=== PATIENT | male | born 1955 ===

== ENCOUNTER 2017-03-10 12:13 | Emergency (ER) | payer OTHER ==
[2017-03-10 12:32] VITALS: BP 150/76; TEMP 98.4
[2017-03-10 12:53] VITALS: BMI 27.4
--- NOTE | 2017-03-10 13:20 | C.PDOC ---
History Of Present Illness A 62 year old male presents to the ER c/o pain and swelling to the left hand since yesterday. Patient notes the pain as a 5/10 to the dorsum of the left hand that is non-radiating. Patient states that he had a mechanical fall and landed with his left hand stretched out. Patient denies head injury, neck pain, fever, chills, nausea, vomiting, headache. Time Seen by Provider: 03/10/17 12:38 Chief Complaint (Nursing): Upper Extremity Problem/Injury History Per: Patient History/Exam Limitations: no limitations Onset/Duration Of Symptoms: Days Current Symptoms Are (Timing): Still Present Quality: "Pain" Severity: Moderate Pain Scale Rating Of: 5 Exacerbating Factor(s): Movement Additional History Per: Patient Past Medical History Reviewed: Historical Data, Nursing Documentation, Vital Signs Vital Signs: Last Vital Signs Temp 98.4 F 03/10/17 12:31 Pulse 86 03/10/17 13:31 Resp 18 03/10/17 13:31 BP 150/76 03/10/17 12:31 Pulse Ox 100 03/10/17 14:35 - Medical History PMH: HTN Family History: States: Unknown Family Hx - Social History Hx Alcohol Use: No Hx Substance Use: No - Immunization History Hx Tetanus Toxoid Vaccination: Yes Hx Influenza Vaccination: Yes Hx Pneumococcal Vaccination: Yes Review Of Systems Except As Marked, All Systems Reviewed And Found Negative. Constitutional: Negative for: Fever, Chills Gastrointestinal: Negative for: Nausea, Vomiting Musculoskeletal: Positive for: Hand Pain (Left hand pain). Negative for: Neck Pain, Other (Head injury) Neurological: Negative for: Headache Physical Exam - Physical Exam Appears: Non-toxic, No Acute Distress Skin: Warm, Dry Head: Atraumatic, Normacephalic Eye(s): bilateral: Normal Inspection Extremity: Tenderness (Tenderness to the 3rd and 4th metacarpal), Swelling ( Swelling and warmth to dorsum of the left hand) ED Course And Treatment O2 Sat by Pulse Oximetry: 100 (RA) Pulse Ox Interpretation: Normal - Other Rad X-Ray left hand X-Ray: Interpreted by Me, Viewed By Me Interpretation: Impression: No acute fractures to the left hand Medical Decision Making Medical Decision Making: Impression: 62 y/o c/o left hand pain Plans: -Tylenol -X-Ray left hand X-Ray shows no acute fractures to the left hand Splint was placed to the left hand. Patient was notified to follow up with PMD within 1-2 days. Disposition Counseled Patient/Family Regarding: Studies Performed, Diagnosis, Need For Followup, Rx Given - Disposition Referrals: Carlos Day MD [Primary Care Provider] - Grace Galvan MD [Staff Provider] - Disposition: HOME/ ROUTINE Disposition Time: 13:18 Condition: STABLE Additional Instructions: Follow up with your Orthopedist. You can call me (Dr. Zambrano) in the ED for the official results. Prescriptions: Ibuprofen [Motrin] 600 mg PO TID #15 tab Instructions: Wrist Injury (ED), RICE Therapy (ED) Forms: Work Excuse - POA Present On Arrival: None - Clinical Impression Clinical Impression: Sprain, Contusion - Scribe Statement The provider has reviewed the documentation as recorded by the Scribe Parveen ayers All medical record entries made by the Scribe were at my direction and personally dictated by me. I have reviewed the chart and agree that the record accurately reflects my personal performance of the history, physical exam, medical decision making, and the department course for this patient. I have also personally directed, reviewed, and agree with the discharge instructions and disposition.
[2017-03-10 13:34] VITALS: PULSE 86; RESP 18
--- NOTE | 2017-03-10 13:37 | RAD ---
PROCEDURE: Left Hand Radiographs. HISTORY: fall COMPARISON: None. FINDINGS: BONES: Normal. No fracture. 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 SOFT TISSUES: Normal. OTHER FINDINGS: None. IMPRESSION: No acute findings related to/accounting for the clinical presentation.
[2017-03-10 14:07] VITALS: O2SAT 100
== END 2017-03-10 13:34 | disposition home or self-care (01) ==
LOC: EDSEX 12:13 → SUPCPDRO 12:13 → C.ER 12:13
DX: S63.92XA Sprain of unspecified part of left wrist and hand, initial encounter (principal); S60.222A Contusion of left hand, initial encounter; W19.XXXA Unspecified fall, initial encounter; I10 Essential (primary) hypertension